=== PATIENT | male | born 1960 | race Caucasian/White ===

== ENCOUNTER 2017-02-24 10:41 | Emergency (ER) | payer SELFPAY ==
[~2017-02-24] VITALS: Ht 172.7 cm; Wt 89.2 kg
[~2017-02-24 10:41] MED LIST: MOTRIN600 MG PO; PEN-VEE K,VEET500 MG PO
[2017-02-24] MEDS ORDERED: MOTRIN800 MG PO (11:51)
[2017-02-24] MEDS ORDERED: PEN-VEE K,VEET500 MG PO (11:51)
[2017-02-24 12:31] VITALS: BP 116/69
== END 2017-02-24 12:41 | disposition home or self-care (01) ==
LOC: EME 10:41
DX: K04.7 Periapical abscess without sinus (principal); L03.211 Cellulitis of face; F17.200 Nicotine dependence, unspecified, uncomplicated; F11.20 Opioid dependence, uncomplicated
CPT/HCPCS: 99281; 99284